=== PATIENT | male | born 1975 | race Caucasian/White ===

== ENCOUNTER 2020-04-15 21:19 | Observation (INO) ==
[2020-04-15 22:09] LABS: Basophils # 0.1 K/mcL (0.0-0.2); Basophils % 0.6 %; Eosinophils # 0.2 K/mcL (0.0-0.6); Hematocrit 45.1 % (37.5-50.1); Hemoglobin 15.2 g/dL (12.9-16.9); Immature Granulocytes % 0.3 % (0-4); Lymphocytes % 31.5 %; Mean Corpuscular HGB Conc 33.7 g/dL (31.6-35.5); Mean Corpuscular Hemoglobin 33.3 pg (28.0-33.3); Mean Corpuscular Volume 98.9 fL (83.0-100.0); Mean Platelet Volume 11.5 fL (9.4-12.4); Monocytes # 0.7 K/mcL (0.0-1.3); Monocytes % 7.2 %; Neutrophils # 5.5 K/mcL (1.6-8.9); Platelet Count 178 K/mcL (140-400); Prothrombin Time 11.8 Seconds (9.4-12.1); Red Blood Count 4.56 M/mcL (4.19-5.50); Red Cell Distribution Width 11.9 % (11.5-14.5); Segmented Neutrophils % 58.4 %; White Blood Count 9.4 K/mcL (4.3-11.1)
[2020-04-15 22:26] LABS: BUN/Creatinine Ratio 21 (6-26); Blood Urea Nitrogen 17 mg/dL (6-20); Calcium 9.6 mg/dL (8.6-10.3); Carbon Dioxide 26 mEq/L (23-29); Chloride 102 mEq/L (98-107); Glucose 109 mg/dL (70-105); Osmolality,Calculated 288 (280-300); Potassium 3.8 mEq/L (3.5-5.1); Sodium 138 mEq/L (136-145); eGFR For African Americans > 60 (> 60); eGFR For Non-African Americans > 60 (> 60)
[2020-04-15 22:44] LABS: Troponin I 0.06 ng/mL (< 0.04)
[2020-04-15] MEDS ORDERED: *HR* Heparin 5,000 UNIT/ML VIAL IVP ONE (22:53)
[2020-04-15] MEDS ORDERED: *HR* Heparin 5,000 UNIT/ML VIAL IVP PRN ×2 (22:53)
[2020-04-15] MEDS ORDERED: Heparin 25,000UNIT/250ML 1/2NS 25,000 UNIT/250 ML IV.SOLN IVC SCH (23:00)
[2020-04-15] MEDS ORDERED: Morphine Sulfate 2 MG/ML SYRINGE IVP ONE (23:20)
[2020-04-16] MEDS ORDERED: Ondansetron ODT 4 MG TAB.RAPDIS SL PRN (00:59)
[2020-04-16] MEDS ORDERED: Naloxone 0.4 MG/ML INJ IVP PRN (00:59)
[2020-04-16] MEDS ORDERED: Acetaminophen 325 MG TABLET PO PRN (00:59)
[2020-04-16] MEDS ORDERED: Morphine Sulfate 2 MG/ML SYRINGE IVP ONE (02:21)
[2020-04-16] MEDS ORDERED: Perflutren Lipid Microsphere 1.3 ML in 0.9 % Sodium Chloride 8.7 ML IVP PRN (03:12)
[2020-04-16] MEDS ORDERED: Nitroglycerin 1 INCH/GM PACKET TP ONE (03:37)
[2020-04-16 05:03] LABS: Basophils # 0.1 K/mcL (0.0-0.2); Basophils % 0.7 %; Eosinophils # 0.2 K/mcL (0.0-0.6); Eosinophils % 2.1 %; Hematocrit 44.1 % (37.5-50.1); Hemoglobin 15.1 g/dL (12.9-16.9); Immature Granulocytes % 0.1 % (0-4); Lymphocytes # 2.7 K/mcL (0.6-4.6); Lymphocytes % 37.2 %; Mean Corpuscular HGB Conc 34.2 g/dL (31.6-35.5); Mean Corpuscular Hemoglobin 34.1 pg (28.0-33.3); Mean Corpuscular Volume 99.5 fL (83.0-100.0); Monocytes # 0.5 K/mcL (0.0-1.3); Monocytes % 6.4 %; Neutrophils # 3.9 K/mcL (1.6-8.9); Platelet Count 158 K/mcL (140-400); Red Blood Count 4.43 M/mcL (4.19-5.50); Segmented Neutrophils % 53.5 %; White Blood Count 7.2 K/mcL (4.3-11.1)
[2020-04-16 05:21] LABS: BUN/Creatinine Ratio 21 (6-26); Blood Urea Nitrogen 18 mg/dL (6-20); Calcium 9.4 mg/dL (8.6-10.3); Carbon Dioxide 26 mEq/L (23-29); Chloride 102 mEq/L (98-107); Glucose 92 mg/dL (70-105); Magnesium 1.8 mg/dL (1.6-2.6); Osmolality,Calculated 286 (280-300); Phosphorous 4.3 mg/dL (2.7-4.5); Potassium 3.9 mEq/L (3.5-5.1); Sodium 137 mEq/L (136-145); eGFR For African Americans > 60 (> 60); eGFR For Non-African Americans > 60 (> 60)
[2020-04-16] MEDS ORDERED: Nitroglycerin 0.2 MG PATCH.TD24 TD SCH (07:30)
[2020-04-16] MEDS ORDERED: carvediloL 25 MG TABLET PO SCH (08:00)
[2020-04-16] MEDS ORDERED: Aspirin Enteric Coated 81 MG Tablet PO SCH (09:00)
[2020-04-16] MEDS ORDERED: 0.9 % Sodium Chloride 2,000 ML ONE (11:35)
[2020-04-16] MEDS ORDERED: *HR* Heparin 10,000 UNIT/10 ML VIAL ONE (11:36)
[2020-04-16] MEDS ORDERED: ISOVUE-370 200 ML INFUS..BTL ONE (11:36)
[2020-04-16] MEDS ORDERED: Heparin 1,000 UNITS/500 mL 500 ML ONE (11:36)
[2020-04-16] MEDS ORDERED: Nitroglycerin 1,000 MCG/10 ML VIAL IV ONE (11:36)
[2020-04-16] MEDS ORDERED: *HR* Midazolam HCl 2 MG/2 ML VIAL ONE (11:44)
[2020-04-16] MEDS ORDERED: *HR* FentaNYL (PF) 100 MCG/2 ML VIAL ONE (12:03)
[2020-04-16] MEDS ORDERED: Nitroglycerin 0.4 MG TAB.SUBL SL PRN (13:38)
[2020-04-16] MEDS ORDERED: Isosorbide MONOnitrate (24 HR) 30 MG TAB.ER.24H PO SCH (13:45)
[2020-04-16 14:17] LABS: Chol/HDL Ratio 3.5 (0-4.9)
[2020-04-16 14:21] VITALS: BP 129/88
[2020-04-16 16:02] LABS: Estimated Average Glucose 126 mg/dl
== END 2020-04-16 15:02 | disposition home or self-care (01) ==
LOC: 3BNU 21:19 → EMEROOARM 21:19 → SUATTDRO 04-16 00:50 → 3BNU 04-16 01:10
PROVIDERS: ADMIT Internal Medicine; ATTEND Internal Medicine